=== PATIENT | female | born 1955 | race Caucasian/White ===

== ENCOUNTER → 2016-10-26 | Outpatient (CLI) | payer OTHER ==
--- NOTE | 2016-10-26 13:36 | XR ---
EXAMINATION TYPE: XR chest 2V DATE OF EXAM: 10/26/2016 COMPARISON: NONE HISTORY: Preoperative clearance. TECHNIQUE: Frontal and lateral views of the chest are obtained. FINDINGS: There is no pleural effusion, or pneumothorax seen. Subsegmental right middle lobe atelec tasis is seen. The cardiac silhouette size is within normal limits. The osseous structures are inta ct. Mild degenerative changes of the thoracic spine are noted. IMPRESSION: Subsegmental right middle lobe atelectasis.
[2016-10-26 13:54] LABS: EKG EKG PERFORMED
[2016-10-26 14:28] LABS: Basophils % (A) 1 %; CH 29.3; CHCM 31.5; Eosinophils # (A) 0.1 k/uL (0-0.7); Eosinophils % (A) 2 %; HCT 39.9 % (34.0-46.0); HDW 2.68; HGB 12.9 gm/dL (11.4-16.0); Hypochromasia Slight; Luc # (Auto) 0.17; Luc % (Auto) 3; Lymphocytes # (A) 1.4 k/uL (1.0-4.8); Lymphocytes % (A) 29 %; MCH 30.4 pg (25.0-35.0); MCHC 32.4 g/dL (31.0-37.0); MCV 93.8 fL (80.0-100.0); Mean Platelet Volume 7.1; Monocytes # (A) 0.2 k/uL (0-1.0); Monocytes % (A) 4 %; Neutrophils % (A) 61 %; RBC 4.25 m/uL (3.80-5.40); RDW 13.8 % (11.5-15.5); WBC 4.9 k/uL (3.8-10.6); WBC (Perox) 4.82
[2016-10-26 14:31] LABS: Anion Gap 12 mmol/L; Blood Urea Nitrogen 24 mg/dL (7-17); Calcium 9.4 mg/dL (8.4-10.2); Carbon Dioxide 23 mmol/L (22-30); Chloride 106 mmol/L (98-107); Glucose 125 mg/dL (74-99); Non-African American GFR(MDRD) >60 (>60 ml/min/1.73 sqM); Potassium 4.2 mmol/L (3.5-5.1); Sodium 141 mmol/L (137-145)
[2016-10-26 14:36] LABS: Partial Thromboplastin Time 24.5 sec (22.0-30.0); Prothrombin Time 10.3 sec (9.0-12.0)
[2016-10-26 14:43] LABS: Appearance,Urine Cloudy (Clear); Bacteria,Urine Moderate /hpf; Bilirubin,Urine Negative (Negative); Glucose,Urine (UA) Negative (Negative); Ketones,Urine Negative (Negative); Leukocyte Esterase,Urine Moderate (Negative); Mucus,Urine Occasional /hpf; Nitrite,Urine Positive (Negative); PH, Urine 5.5 (5.0-8.0); Particle Count 40281; Protein,Urine Trace (Negative); RBC,Urine 6 /hpf (0-5); Specific Gravity,Urine 1.021 (1.001-1.035); Squamous Epithelial Cell,Urine 2 /hpf (0-4); UA Billing (MACRO vs. MICRO) MICRO; Urobilinogen,Urine <2.0 mg/dL (<2.0); WBC,Urine 24 /hpf (0-5)
== END | disposition home or self-care (01) ==
LOC: RADXRMAIN 13:01
PROVIDERS: ATTEND Orthopaedic Surgery Orthopaedic Surgery of the Spine
DX: Z01.818 Encounter for other preprocedural examination (principal); Z01.810 Encounter for preprocedural cardiovascular examination; M51.26 Other intervertebral disc displacement, lumbar region; J98.11 Atelectasis
CPT/HCPCS: 71020; 80048; 81001; 85025; 85610; 85730; 93005

== ENCOUNTER 2016-11-02 11:38 | Day surgery (SDC) | payer OTHER ==
[2016-10-27 16:45] VITALS: BMI 34.9
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
[~2016-11-02 11:38] MED LIST: BACITRACIN 50,000 UNIT, POLYMYXIN B 500,000 UNIT in SODIUM CHLORIDE 0.9% IRRIGATIO 1,00... IRRIGATION ONE; HYDROmorphone 1 MG/ML 1 ML SYRINGE IVP PRN; LACTATED RINGERS 1,000 ML IV SCH; LIDOCAINE 1% 20 ML VIAL (10MG/ML) FOR IV START INTRADERMA PRN; ONDANSETRON 4 MG/2 ML VIAL IVP ONE; SCOPOLAMINE 1.5MG/72HR PATCH TRANSDERM ONE; ceFAZolin 2 GM in SODIUM CHLORIDE 0.9% 100 ML IVPB ONE
[2016-11-02] MEDS ORDERED: SCOPOLAMINE 1.5MG/72HR PATCH TRANSDERM ONE (12:34)
[2016-11-02] MEDS ORDERED: ePHEDrine SULFATE/0.9% NACL/PF 50 MG/5 ML SYRINGE IV ONE (12:41)
[2016-11-02] MEDS ORDERED: SUCCINYLCHOLINE CHLORIDE 100 MG/5 ML SYR IV ONE (12:41)
[2016-11-02] MEDS ORDERED: ROCURONIUM BROMIDE 10 MG/ML 10 ML VIAL IV ONE (12:41)
[2016-11-02] MEDS ORDERED: MIDAZOLAM 2 MG/2 ML VIAL ONE (12:41)
[2016-11-02] MEDS ORDERED: GLYCOPYRROLATE 0.2 MG/ML 2 ML VIAL ONE (12:41)
[2016-11-02] MEDS ORDERED: fentaNYL (PF) 50 MCG/ML 2 ML AMP ONE (12:41)
[2016-11-02] MEDS ORDERED: LIDOCAINE 1% INJ 10MG/ML (20 ML MDV) ONE (12:41)
[2016-11-02] MEDS ORDERED: DEXAMETHASONE SOD PHOS (MDV) 100 MG/10 ML VIAL ONE (12:41)
[2016-11-02] MEDS ORDERED: NEOSTIGMINE 1 MG/ML 10 ML VIAL ONE (12:41)
[2016-11-02] MEDS ORDERED: PROPOFOL 10 MG/ML 20 ML VIAL IV ONE (12:41)
[2016-11-02] MEDS ORDERED: BUPIVACAIN-EPI 0.5%-1:200,000 30 ML VIAL SQ ONE ×2 (13:03)
[2016-11-02] MEDS ORDERED: THROMBIN (BOVINE) 5,000 UNIT VIAL TOPICAL ONE (13:04)
[2016-11-02] MEDS ORDERED: methylPREDNISolone ACETATE 40 MG/ML 1 ML VIAL INJ ONE (13:13)
--- NOTE | 2016-11-02 13:32 | XR ---
Fluoroscopy INDICATION: Pain FINDINGS: Fluoroscopy time: 5 seconds. Images obtained: 1. IMPRESSIONS: 1. Documentation of fluoroscopy.
[2016-11-02] MEDS ORDERED: BENZOCAINE/MENTHOL LOZENG 1 EACH LOZENGE MUCOUS MEM PRN (14:09)
[2016-11-02] MEDS ORDERED: MAGNESIUM HYDROXIDE 2,400 MG/10 ML CUP PO PRN (14:09)
[2016-11-02] MEDS ORDERED: DIAZEPAM 5 MG TAB PO PRN ×2 (14:09→14:12)
[2016-11-02] MEDS ORDERED: HYDROmorphone 1 MG/ML 1 ML SYRINGE IVP PRN ×2 (14:09)
[2016-11-02] MEDS ORDERED: HYDROcodone/APAP 5-325MG 1 EACH TAB PO PRN ×3 (14:10→14:12)
[2016-11-02] MEDS ORDERED: IBUPROFEN 600 MG TAB PO PRN (14:10)
[2016-11-02] MEDS ORDERED: ONDANSETRON 4 MG/2 ML VIAL IVP PRN (14:10)
[2016-11-02] MEDS ORDERED: ACETAMINOPHEN TAB 500 MG TAB PO PRN (14:12)
[2016-11-02] MEDS ORDERED: IBUPROFEN 400 MG PO PRN (14:12)
--- NOTE | 2016-11-02 14:16 | P.OP ---
Date of Procedure: 11/02/16 Preoperative Diagnosis: Herniated nucleus pulposis L4 5, degenerative disc disease L4 5, lower extremity radiculopathy Postoperative Diagnosis: Same Procedure(s) Performed: Implants: Anesthesia: GETA Pathology: none sent Condition: stable Disposition: PACU Indications for Procedure: Operative Findings: Description of Procedure: BRIEF OPERATIVE NOTE Preoperative Diagnosis: Herniated nucleus pulposis L4 5, degenerative disc disease L4 5, lower extremity radiculopathy Postoperative Diagnosis: Same Procedure: Laminectomy and decompression L4 5 Discectomy for decompression L4 5 Surgeon: Dr. Espinoza Facilities Custodian: Roderick Tello is present throughout the entire the case persistence during positioning, dissection, exposure, visualization, and all crucial elements of the case as well as closure. Anesthesia: General anesthesia Estimated blood loss: Approximately 100 mL Complications: None apparent Components implanted: None Disposition: To recovery room in good stable condition. OPERATIVE INDICATIONS The patient has been having issues in their lower back and lower extremities. She has been having these symptoms over the past 8 months or so. She's been treated conservatively with aggressive conservative treatment and interventional pain management without any prolonged benefit. She is found have a significant disc herniation L4 5 causing significant compression at the traversing nerve root which correlated well with her back and lower extremity symptoms. The patient has been through conservative treatment. We discussed various treatment options including surgery, and the patient wishes to proceed with surgery We discussed the risk, patient's alternatives and benefits of surgery including but not limited to, risk of bleeding risk of infection, risk of need for further surgery, risk of decreased, loss of motion, loss of function , nerve damage, paralysis, heart attack, blindness and . OPERATIVE SUMMARY After discussing all the risks, patient alternatives and benefits at length, the patient elected to proceed with surgical intervention, signed informed consent, and presented for their procedure. The patient was seen and examined in the preoperative holding area and the surgical site was marked. The patient was given antibiotics and brought to the operating room. The patient was sedated and intubated by anesthesia in standard fashion. The patient was positioned on to the operating room table in a prone position on the appropriate frame which was well-padded and well molded. We were careful to pad any bony prominences and pressure points. We were careful to maintain the patient's cervical spine and good neutral alignment and position throughout. The patient was prepped and draped in a normal standard fashion. An appropriate timeout and keystone protocol performed. We were able to proceed with the surgery. Fluoroscopy was utilized to establish the appropriate level at L4 5. The local wound area was infiltrated with local anesthetic. An incision was made at the midline longitudinally over the appropriate levels at L4 5. Dissection was taken down subcutaneously to the level of the fascia which was split midline. Dissection was taken over the lamina. Intraoperative fluoroscopy was taken which showed a marker at the appropriate level at L4 5. With the appropriate level positively confirmed, we were able to proceed with laminectomy. The wound was copiously irrigated and suctioned dry as had been done periodically throughout the case. I performed a laminectomy with a combination of curettes and a high-speed bur and Kerrison rongeurs. A small medial facetectomy was performed again further access. A partial foraminotomy was also performed. Portions of the ligamentum flavum were taken down to expose the dura and traversing nerve root. I was able to mobilize the traversing nerve root and gain access to the disc space. Note was made of obvious compression from the disc. Protecting the soft tissue structures, a small annulotomy was established. I was able to perform discectomy and remove any extruded disc fragments and any loose fragments from within the disc itself. The disc was somewhat scarred in and there are some hard disc which was removed. There is some disc significant desiccation noted. I tried to preserve the disc annulus that appeared stable. There were no further extruded fragments noted. There is no evidence of dural tear or leak. Good hemostasis maintained. The wound was copiously irrigated and suctioned dry. Good decompression and discectomy was noted. We were able to proceed with closure. The fascia was closed for a watertight closure. The subcuticular tissue was closed with absorbable suture. The wound was cleaned and dried and dressed with the appropriate dressing. The drapes were broken down. The patient was gently rolled back onto their hospital bed being careful to maintain their cervical spine and good neutral alignment and position. They were woken up by anesthesia, extubated, and brought to the recovery room in good stable condition. The patient will be admitted to the hospital for observation and for appropriate postoperative care, medical management and monitoring. We will continue to follow them closely about the postoperative course.
[2016-11-02] MEDS ORDERED: LACTATED RINGERS 1,000 ML IV ONE (14:53)
[2016-11-02] MEDS: SODIUM CHLORIDE 0.9% 1,000 ML IV SCH (15:47)
[2016-11-02] MEDS: BACLOFEN 10 MG TAB PO SCH ×2 (15:50→22:06)
[2016-11-02] MEDS: buPROPion 75 MG TAB PO SCH (20:38)
[2016-11-02] MEDS: NITROFURANTOIN MONOHYD/M-CRYST 100 MG CAP PO SCH (20:38)
[2016-11-02] MEDS: CIPROFLOXACIN HCL 500 MG TAB PO SCH (20:38)
[2016-11-02] MEDS: ceFAZolin 2 GM in SODIUM CHLORIDE 0.9% 100 ML IVPB SCH (23:15)
[2016-11-03] MEDS: SODIUM CHLORIDE 0.9% 1,000 ML IV SCH (07:25)
[2016-11-03 07:52] VITALS: BP 112/56; PULSE 70; RESP 16; TEMP 98.1
[2016-11-03] MEDS: ceFAZolin 2 GM in SODIUM CHLORIDE 0.9% 100 ML IVPB SCH (08:25)
[2016-11-03] MEDS: BACLOFEN 10 MG TAB PO SCH (08:26)
[2016-11-03] MEDS: CIPROFLOXACIN HCL 500 MG TAB PO SCH (08:27)
[2016-11-03] MEDS: NITROFURANTOIN MONOHYD/M-CRYST 100 MG CAP PO SCH (08:27)
[2016-11-03] MEDS: buPROPion 75 MG TAB PO SCH (08:28)
[2016-11-03] MEDS ORDERED: DOCUSATE 100 MG CAP PO SCH (09:00)
[2016-11-03] MEDS ORDERED: CHOLECALCIFEROL 1,000 UNIT TAB PO SCH (09:00)
[2016-11-03] MEDS ORDERED: OXYBUTYNIN CHLORIDE 5 MG TAB PO SCH (09:00)
[2016-11-03] MEDS ORDERED: LACTOBACILLUS ACIDOPH & BULGAR 1 EACH PACKET PO SCH (09:00)
[2016-11-03] MEDS ORDERED: CYANOCOBALAMIN 500 MCG TAB PO SCH (09:00)
[2016-11-03] MEDS ORDERED: ASCORBIC ACID 500 MG TAB PO SCH (09:00)
[2016-11-03] MEDS ORDERED: GABAPENTIN 300 MG CAP PO SCH (09:00)
[2016-11-03] MEDS ORDERED: FLUoxetine HCL 20 MG CAP PO SCH (09:00)
[2016-11-03] MEDS ORDERED: SENNOSIDES-DOCUSATE SODIUM 1 EACH TAB PO SCH (09:00)
[2016-11-03] MEDS ORDERED: FAMOTIDINE 20 MG TAB PO SCH (09:00)
--- NOTE | 2016-11-03 11:58 | P.DS ---
Providers Expected date of discharge: 11/03/16 Attending physician: Major Espinoza Primary care physician: Balaji Lopez - Discharge Diagnosis(es) (1) Herniated nucleus pulposus Current Visit: Yes Status: Acute (2) S/P laminectomy Current Visit: Yes Status: Acute Hospital Course: This is a 61-year-old female with a known history of disc herniation at L4/5 causing chronic issues with her lower back and bilateral lower extremities.. The patient presents for evaluation. After discussion and consideration patient elects to proceed with laminectomy and decompression L4/5. The patient is seen preoperatively by Dr. Espinoza and cleared for surgery. Patient is admitted to [facility] on 11/02/2016 for laminectomy and decompression L4/5. The procedures performed without complication or sequelae. The patient is doing well postoperatively. Labs and vital signs are stable on day of discharge. On day of discharge patient's back incision is healing well. There is minimal erythema. There is mild drainage noted at this time. Patient has full range of motion of bilateral lower extremities. Strength 5/5. Sensation intact. Patient has been up and walking with her walker without difficulty. Neurovascular status to bilateral lower extremities is intact. Patient is discharged home in good condition. Please see med rec for accurate list of home medications. Plan - Discharge Summary New Discharge Prescriptions: New HYDROcodone/APAP 5-325MG [[place] 5-325] 1 - 2 tab PO Q4-6H PRN #90 tab PRN Reason: Pain Sennosides-Docusate Sodium [Senokot-S] 1 tab PO BID #60 tablet No Action Ranitidine HCl [Zantac] 150 mg PO DAILY Acetaminophen Tab [Tylenol Tab] 1,000 mg PO Q6HR PRN PRN Reason: Pain Docusate [Colace] 100 mg PO DAILY HYDROcodone/APAP 5-325MG [[place] 5-325] 1 tab PO Q12HR PRN PRN Reason: Pain buPROPion [Wellbutrin] 75 mg PO BID Gabapentin [Neurontin] 300 mg PO DAILY Tolterodine [Detrol] 2 mg PO DAILY FLUoxetine HCL [PROzac] 40 mg PO DAILY Diazepam [Valium] 5 mg PO TID PRN PRN Reason: Muscle Spasm Baclofen [Lioresal] 5 mg PO TID L.acidoph,Paracasei, B.lactis [Probiotic] 1 each PO DAILY Ibuprofen 400 mg PO DAILY PRN PRN Reason: Pain Glucosam/Mor-Msm1/C/Raymon/Bosw [Glucosamine-Chondroitin Tablet] 1 each PO DAILY Cyanocobalamin (Vitamin B-12) [Vitamin B-12] 1,000 mcg PO DAILY Coconut Oil 1 tab PO DAILY Cholecalciferol (Vitamin D3) [Vitamin D3] 2,000 unit PO DAILY Ascorbic Acid [Vitamin C] 1,000 mg PO DAILY Nitrofurantoin Monohyd/M-Cryst [Macrobid] 100 mg PO Q12HR Ciprofloxacin HCl [Cipro] 500 mg PO Q12HR Discharge Medication List Acetaminophen Tab [Tylenol Tab] 1,000 mg PO Q6HR PRN 10/27/16 [History] Ascorbic Acid [Vitamin C] 1,000 mg PO DAILY 10/27/16 [History] Baclofen [Lioresal] 5 mg PO TID 10/27/16 [History] Cholecalciferol (Vitamin D3) [Vitamin D3] 2,000 unit PO DAILY 10/27/16 [History] Coconut Oil 1 tab PO DAILY 10/27/16 [History] Cyanocobalamin (Vitamin B-12) [Vitamin B-12] 1,000 mcg PO DAILY 10/27/16 [ History] Diazepam [Valium] 5 mg PO TID PRN 10/27/16 [History] Docusate [Colace] 100 mg PO DAILY 10/27/16 [History] FLUoxetine HCL [PROzac] 40 mg PO DAILY 10/27/16 [History] Gabapentin [Neurontin] 300 mg PO DAILY 10/27/16 [History] Glucosam/Mor-Msm1/C/Raymon/Bosw [Glucosamine-Chondroitin Tablet] 1 each PO DAILY 10/27/16 [History] HYDROcodone/APAP 5-325MG [[place] 5-325] 1 tab PO Q12HR PRN 10/27/16 [History] Ibuprofen 400 mg PO DAILY PRN 10/27/16 [History] L.acidoph,Paracasei, B.lactis [Probiotic] 1 each PO DAILY 10/27/16 [History] Nitrofurantoin Monohyd/M-Cryst [Macrobid] 100 mg PO Q12HR 10/27/16 [History] Ranitidine HCl [Zantac] 150 mg PO DAILY 10/27/16 [History] Tolterodine [Detrol] 2 mg PO DAILY 10/27/16 [History] buPROPion [Wellbutrin] 75 mg PO BID 10/27/16 [History] Ciprofloxacin HCl [Cipro] 500 mg PO Q12HR 10/29/16 [History] HYDROcodone/APAP 5-325MG [[place] 5-325] 1 - 2 tab PO Q4-6H PRN #90 tab 11/03/16 [ Rx] Sennosides-Docusate Sodium [Senokot-S] 1 tab PO BID #60 tablet 11/03/16 [Rx] Follow up Appointment(s)/Referral(s): Major Espinoza DO [Doctor of Osteopathic Medicine] - 2 Weeks Activity/Diet/Wound Care/Special Instructions: May shower with Tegaderm dressing intact. Please take medications as prescribed. Follow-up with Dr. Espinoza in 2 weeks. Call [facility] with any questions or concerns. [phone] Discharge Disposition: HOME SELF-CARE
== END 2016-11-03 14:20 | disposition home or self-care (01) ==
LOC: OR 11:38 → EDSTATUS 13:00 → 5MS5E 14:00 → OR 11-03 14:20
PROVIDERS: ATTEND Orthopaedic Surgery Orthopaedic Surgery of the Spine
DX: M51.16 Intervertebral disc disorders with radiculopathy, lumbar region (principal); M51.17 Intervertebral disc disorders with radiculopathy, lumbosacral region; M47.26 Other spondylosis with radiculopathy, lumbar region; M47.817 Spondylosis without myelopathy or radiculopathy, lumbosacral region; F32.9 Major depressive disorder, single episode, unspecified; H91.90 Unspecified hearing loss, unspecified ear; F41.9 Anxiety disorder, unspecified; I10 Essential (primary) hypertension; N31.2 Flaccid neuropathic bladder, not elsewhere classified; N39.498 Other specified urinary incontinence; G82.50 Quadriplegia, unspecified; Z99.3 Dependence on wheelchair; K21.9 Gastro-esophageal reflux disease without esophagitis; Z79.1 Long term (current) use of non-steroidal anti-inflammatories (NSAID); Z79.891 Long term (current) use of opiate analgesic; Z79.899 Other long term (current) drug therapy; Z79.2 Long term (current) use of antibiotics; Z87.891 Personal history of nicotine dependence
CPT/HCPCS: 63030; 97161; 86900; 86901; 86850; 72020; J2250; J1030; J2710; J0690 ×2; J2405; J2001; J3010; J1100; J0330; J2704

== ENCOUNTER → 2016-12-16 | Outpatient (CLI) | payer OTHER ==
--- NOTE | 2016-12-17 09:15 | MM ---
Reason for exam: screening (asymptomatic). Last mammogram was performed 2 years and 11 months ago. History: Patient is postmenopausal. Family history of breast cancer in grandmother at age 70. Benign US biopsy breast VAD RT of the right breast, January 31, 2014. Benign stereotactic core biopsy of the right breast, 2008. Reductions of both breasts, 2000. Physical Findings: A clinical breast exam by your physician is recommended on an annual basis and results should be correlated with mammographic findings. MG 3D Screening Mammo W/Cad Bilateral CC and MLO view(s) were taken. Prior study comparison: January 25, 2014, right breast MG work up mamm w CAD RT. January 18, 2014, bilateral MG screening mammo w CAD. January 03, 2013, bilateral digital screening mammo w/CAD. September 22, 2010, bilateral digital screening mammo w/CAD. There are scattered fibroglandular densities. Previous mammotome biopsy in the right breast. Bilateral mammoplasty changes. Nodularity in the 9-10 o'clock right breast appears new. Benign fat necrosis calcifications redemonstrated bilaterally. ASSESSMENT: Incomplete: need additional imaging evaluation, BI-RAD 0 RECOMMENDATION: Special view mammogram and ultrasound of the right breast. (upper outer quadrant) [facility] will attempt to contact patient to return for supplemental views and ultrasound.
== END | disposition home or self-care (01) ==
LOC: RADMAMWWP 11:29
PROVIDERS: ATTEND Internal Medicine
DX: Z12.31 Encounter for screening mammogram for malignant neoplasm of breast (principal)
CPT/HCPCS: 77063; G0202

== ENCOUNTER → 2016-12-25 | Outpatient (CLI) | payer OTHER ==
--- NOTE | 2016-12-25 09:14 | MM ---
Reason for exam: additional evaluation requested from abnormal screening. Last mammogram was performed less than 1 month ago. History: Patient is postmenopausal. Family history of breast cancer in grandmother at age 70. Benign US biopsy breast VAD RT of the right breast, January 31, 2014. Benign stereotactic core biopsy of the right breast, 2008. Reductions of both breasts, 2000. Physical Findings: Nurse did not find any significant physical abnormalities on exam. MG 3D Work Up W/Cad RT CC and MLO view(s) were taken of the right breast. Prior study comparison: December 16, 2016, bilateral MG 3d screening mammo w/cad. January 25, 2014, right breast MG work up mamm w CAD RT. The breast tissue is heterogeneously dense. This may lower the sensitivity of mammography. The mass persist on additional views and morphologically correlated with the sonographic mass. This likely correlated with the sonographic cyst after placement of a BB marker and is probably benign. These results were verbally communicated with the patient and result sheet given to the patient on 12/25/16. ASSESSMENT: Probably benign, BI-RAD 3 RECOMMENDATION: Follow-up diagnostic mammogram of the right breast in 6 months. (with ultrasound is change in size/morphology)
--- NOTE | 2016-12-25 09:16 | USB ---
Reason for exam: additional evaluation requested from abnormal screening. History: Patient is postmenopausal. Family history of breast cancer in grandmother at age 70. Benign US biopsy breast VAD RT of the right breast, January 31, 2014. Benign stereotactic core biopsy of the right breast, 2008. Reductions of both breasts, 2000. US Breast Workup Limited RT Right breast ultrasound demonstrates a 0.6 x 0.3 x 0.3cm cystic lesion at 9 o'clock likely corresponds to mammographic finding after BB placement, a 0.6cm calcification at 11 o'clock and a 0.6cm calcification at 11 o'clock. These results were verbally communicated with the patient and result sheet given to the patient on 12/25/16. ASSESSMENT: Probably benign, BI-RAD 3 RECOMMENDATION: Follow-up diagnostic mammogram of the right breast in 6 months.
== END ==
LOC: RADMAMWWP 07:00
PROVIDERS: ATTEND Internal Medicine
DX: R92.8 Other abnormal and inconclusive findings on diagnostic imaging of breast (principal)
CPT/HCPCS: 76642; G0206; G0279

== ENCOUNTER 2020-05-17 22:49 | Emergency (ER) | payer OTHER ==
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
--- NOTE | 2020-05-17 23:41 | XR ---
EXAMINATION TYPE: XR ankle complete RT DATE OF EXAM: 05/17/2020 COMPARISON: NONE HISTORY: Injury and pain TECHNIQUE: 3 views FINDINGS: There is nondisplaced oblique fracture distal fibula. There is transverse fracture of the m edial malleolus. There is no significant displacement. There is soft tissue swelling around the ankle . There is plantar and Achilles calcaneal spurring. IMPRESSION: Acute bimalleolar fracture of the ankle with soft tissue swelling.
[2020-05-17] MEDS ORDERED: HYDROcodone/APAP 5-325MG 1 EACH TAB PO STA (23:57)
[2020-05-18 00:37] VITALS: BP 137/80; PULSE 80; RESP 16; TEMP 99
== END 2020-05-18 00:15 | disposition home or self-care (01) ==
LOC: EC 22:49
DX: S82.844A Nondisplaced bimalleolar fracture of right lower leg, initial encounter for closed fracture (principal); F41.9 Anxiety disorder, unspecified; F32.9 Major depressive disorder, single episode, unspecified; I10 Essential (primary) hypertension; Z79.899 Other long term (current) drug therapy; Z87.891 Personal history of nicotine dependence; X50.1XXA Overexertion from prolonged static or awkward postures, initial encounter
CPT/HCPCS: 29515; 99284

== ENCOUNTER → 2020-08-22 | Outpatient (CLI) | payer OTHER ==
--- NOTE | 2020-08-28 10:47 | MM ---
Reason for exam: screening (asymptomatic). Last mammogram was performed 3 years and 8 months ago. History: Patient is postmenopausal. Family history of breast cancer in grandmother at age 70. Benign US biopsy breast VAD RT of the right breast, January 31, 2014. Benign stereotactic core biopsy of the right breast, 2008. Reductions of both breasts, 2000. Physical Findings: A clinical breast exam by your physician is recommended on an annual basis and results should be correlated with mammographic findings. MG Screening Mammo w CAD Bilateral CC and MLO view(s) were taken. Prior study comparison: December 25, 2016, right breast MG 3d work up w/cad RT. December 16, 2016, bilateral MG 3d screening mammo w/cad. There are scattered fibroglandular densities. Finding: There are typically benign round, diffuse/scattered calcifications in both breasts. No significant changes in finding since December 25, 2016 and December 16, 2016. ASSESSMENT: Benign, BI-RAD 2 RECOMMENDATION: Routine screening mammogram of both breasts in 1 year.
== END | disposition home or self-care (01) ==
LOC: RADMAMWWP 13:15
PROVIDERS: ATTEND Internal Medicine
DX: Z12.31 Encounter for screening mammogram for malignant neoplasm of breast (principal); Z78.0 Asymptomatic menopausal state; Z80.3 Family history of malignant neoplasm of breast
CPT/HCPCS: 77067

== ENCOUNTER 2020-10-31 23:42 | Emergency (ER) | payer OTHER ==
--- NOTE | 2020-11-01 01:31 | XR ---
EXAMINATION TYPE: XR toes LT DATE OF EXAM: 11/01/2020 COMPARISON: NONE HISTORY: Fall. Pain. TECHNIQUE: 3 views FINDINGS: 3 views of the toes were obtained. There is some thickening of the proximal phalanx of the little toe left foot consistent with an old healed fracture. I see no acute fracture nor dislocation. Third toe appears intact. IMPRESSION: No acute abnormality of the left toes.
[2020-11-01] MEDS ORDERED: TOPICAL SKIN ADHESIVE 1 EACH AMP TOPICAL ONE ×3 (01:33→02:22)
[2020-11-01] MEDS ORDERED: BACITRACIN OINT 1 EACH PACKET TOPICAL ONE (01:39)
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
--- NOTE | 2020-11-01 01:48 | CT ---
EXAMINATION TYPE: CT brain vera gillis con DATE OF EXAM: 11/01/2020 COMPARISON: None HISTORY: fall CT DLP: 1143.4 mGycm Automated exposure control for dose reduction was used. Ventricles and sulci appear normal. There is no mass effect nor midline shift. There is no sign of in tracranial hemorrhage. The calvarium is intact. Skull base is intact. There is normal aeration of the mastoid sinuses. There is some straightening of the cervical spine. There is anterior old fusion surgery at C4-5 and C 5-6. Posterior elements are intact. There is multilevel cervical hypertrophic facet arthropathy. Ther e is no evidence of cervical spine fracture. There is evidence for multilevel cervical bony spinal st enosis. IMPRESSION: Cervical multilevel mild spinal stenosis. Previous surgery. No fracture seen. No acute abnormality of the brain.
--- NOTE | 2020-11-01 01:50 | CT ---
EXAMINATION TYPE: CT facial bones wo con DATE OF EXAM: 11/01/2020 COMPARISON: None HISTORY: fall CT DLP: 1143.4 mGycm Automated exposure control for dose reduction was used. Images obtained from the bottom of the mandible to the top of the frontal sinuses without contrast. Mandibular ring appears intact. Mandibular joints are intact and zygomatic arches appear normal. Orbi leyla margins are intact. There is no evidence of an orbital blowout fracture. There is fairly normal a eration of the paranasal sinuses. There is no evidence of retro-orbital mass. The globes are symmetri c. Nasal bone appears intact. Maxilla is intact. I see no focal bone destruction. Parotid glands are symmetric. There is normal aeration of the mastoid sinuses. External auditory canals appear normal. IMPRESSION: Negative CT scan of the facial bones. No fracture.
[2020-11-01] MEDS ORDERED: CEPHALEXIN 500MG STARTER PACK 4 CAP BTL PO STA (02:22)
[2020-11-01] MEDS ORDERED: IBUPROFEN 600 MG STARTER PACK 4 TAB BTL PO STA (02:22)
[2020-11-01 04:03] VITALS: BP 150/78; PULSE 85; RESP 15; TEMP 97.8
== END 2020-11-01 03:58 | disposition home or self-care (01) ==
LOC: EC 23:42
DX: S01.81XA Laceration without foreign body of other part of head, initial encounter (principal); S91.115A Laceration without foreign body of left lesser toe(s) without damage to nail, initial encounter; S01.21XA Laceration without foreign body of nose, initial encounter; I10 Essential (primary) hypertension; Z87.891 Personal history of nicotine dependence; W05.0XXA Fall from non-moving wheelchair, initial encounter; Y92.009 Unspecified place in unspecified non-institutional (private) residence as the place of occurrence of the external cause
CPT/HCPCS: 12001; 12013; 70450; 70486; 72125; 99284

== ENCOUNTER → 2020-11-29 | Outpatient (CLI) | payer OTHER ==
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
== END | disposition home or self-care (01) ==
LOC: RADBDWWP 14:20
PROVIDERS: ATTEND Internal Medicine
DX: M85.88 Other specified disorders of bone density and structure, other site (principal)
CPT/HCPCS: 77080

== ENCOUNTER 2021-01-29 09:05 | Day surgery (SDC) | payer OTHER ==
[2021-01-27 13:57] VITALS: BMI 33.4
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
[~2021-01-29 09:05] MED LIST changes: -BACITRACIN 50,000 UNIT, POLYMYXIN B 500,000 UNIT in SODIUM CHLORIDE 0.9% IRRIGATIO 1,00... IRRIGATION ONE; -HYDROmorphone 1 MG/ML 1 ML SYRINGE IVP PRN; +LIDOCAINE 1% (10MG/ML) FOR IV START INTRADERMA PRN; -LIDOCAINE 1% 20 ML VIAL (10MG/ML) FOR IV START INTRADERMA PRN; -ONDANSETRON 4 MG/2 ML VIAL IVP ONE; -SCOPOLAMINE 1.5MG/72HR PATCH TRANSDERM ONE; -ceFAZolin 2 GM in SODIUM CHLORIDE 0.9% 100 ML IVPB ONE
[2021-01-29] MEDS ORDERED: ONDANSETRON 4 MG/2 ML VIAL ONE (09:31)
[2021-01-29 09:33] VITALS: RESP 16; TEMP 97.4
[2021-01-29] MEDS ORDERED: PROPOFOL 10 MG/ML 20 ML VIAL IV ONE (09:37)
--- NOTE | 2021-01-29 09:59 | P.PCN ---
Date of Procedure: 01/29/21 Description of Procedure: PREOPERATIVE DIAGNOSIS: Family history colon cancer Colonoscopy screening. POSTOPERATIVE DIAGNOSIS: Family history colon cancer Colonoscopy screening. OPERATION: Colonoscopy to the cecum, ileocecal valve and appendiceal orifice. SURGEON: Alina Delgadillo MD. ANESTHESIA: MAC. INDICATIONS: The patient is a 65-year-old female who presents for colonoscopy screening. Last colonoscopy over 10 years ago. Benefits and risks were described and informed consent was obtained. DESCRIPTION OF PROCEDURE: The patient had undergone Sutab prep. The patient had been brought into the operating room and laid in the left lateral decubitus position. After adequate intravenous sedation, the rectum was examined with 2% lidocaine jelly. External hemorrhoids were encountered. The rectal tone was within normal limits. No lesions were palpated in the rectal vault. An Olympus colonoscope was advanced until the cecum, ileocecal valve and appendiceal orifice were clearly viewed. The prep was excellent. No scattered diverticulosis was encountered. No colonic polyps were found. No evidence of focal colitis was found. Retroflexion of the scope demonstrated grade 2 internal hemorrhoids without active bleeding or inflammation. The colon was desufflated. The patient had tolerated the procedure well. Withdrawal time was over 6 minutes. FINDINGS: Aronchick preparation quality scale 1 (1-5) Internal hemorrhoids, grade 2 External prolapsed hemorrhoids, grade 2 No arteriovenous malformations. No adenomatous polyps. No focal colitis. RECOMMENDATIONS: Lower endoscopy in 5 years, 2025 due to high risk history Plan - Discharge Summary Discharge Rx Participant: No New Discharge Prescriptions: Continue buPROPion [Wellbutrin] 75 mg PO BID FLUoxetine HCL [PROzac] 40 mg PO DAILY Baclofen [Lioresal] 10 mg PO DAILY L.acidoph,Paracasei, B.lactis [Probiotic] 1 cap PO AC-LUNCH Ibuprofen 400 mg PO Q6H PRN PRN Reason: Pain Cyanocobalamin (Vitamin B-12) [Vitamin B-12] 1,000 mcg PO AC-LUNCH Ascorbic Acid [Vitamin C] 1,000 mg PO AC-LUNCH Cranberry 8400mg 8,400 mg PO AC-LUNCH Multivitamins, Thera [Multivitamin (formulary)] 1 tab PO AC-LUNCH Cholecalciferol [Vitamin D3 (25 Mcg = 1000 Iu)] 5,000 unit PO AC-LUNCH Cider Vinegar [Apple Cider Vinegar] 300 mg PO AC-LUNCH Oxybutynin Chloride [Ditropan XL] 10 mg PO DAILY Thyroid,Pork [Composition Professor Thyroid] 30 mg PO DAILY Discharge Medication List Ascorbic Acid [Vitamin C] 1,000 mg PO AC-LUNCH 10/27/16 [History] Baclofen [Lioresal] 10 mg PO DAILY 10/27/16 [History] Cyanocobalamin (Vitamin B-12) [Vitamin B-12] 1,000 mcg PO AC-LUNCH 10/27/16 [History] FLUoxetine HCL [PROzac] 40 mg PO DAILY 10/27/16 [History] Ibuprofen 400 mg PO Q6H PRN 10/27/16 [History] L.acidoph,Paracasei, B.lactis [Probiotic] 1 cap PO AC-LUNCH 10/27/16 [History] buPROPion [Wellbutrin] 75 mg PO BID 10/27/16 [History] Cholecalciferol [Vitamin D3 (25 Mcg = 1000 Iu)] 5,000 unit PO AC-LUNCH 01/07/17 [History] Cider Vinegar [Apple Cider Vinegar] 300 mg PO AC-LUNCH 01/07/17 [History] Cranberry 8400mg 8,400 mg PO AC-LUNCH 01/07/17 [History] Multivitamins, Thera [Multivitamin (formulary)] 1 tab PO AC-LUNCH 01/07/17 [History] Oxybutynin Chloride [Ditropan XL] 10 mg PO DAILY 01/27/21 [History] Thyroid,Pork [Composition Professor Thyroid] 30 mg PO DAILY 01/27/21 [History] Follow up Appointment(s)/Referral(s): Alina Delgadillo MD [STAFF PHYSICIAN] - As Needed Patient Instructions/Handouts: *Surgery [facility] - (Anesthesia) Endoscopy Discharge Instructions Activity/Diet/Wound Care/Special Instructions: Repeat colonoscopy in 5 years, 2025 Discharge Disposition: HOME SELF-CARE
[2021-01-29 10:20] VITALS: BP 100/66; PULSE 63
== END 2021-01-29 11:36 | disposition home or self-care (01) ==
LOC: ORWHC2ENDO 09:05
PROVIDERS: ATTEND Surgery Plastic and Reconstructive Surgery
DX: Z12.11 Encounter for screening for malignant neoplasm of colon (principal); Z80.0 Family history of malignant neoplasm of digestive organs; K64.1 Second degree hemorrhoids; I10 Essential (primary) hypertension; E07.9 Disorder of thyroid, unspecified; F32.A Depression, unspecified; Z74.09 Other reduced mobility; N39.41 Urge incontinence; Z86.010 Personal history of colon polyps; Z87.81 Personal history of (healed) traumatic fracture; Z87.891 Personal history of nicotine dependence; Z98.51 Tubal ligation status; Z98.890 Other specified postprocedural states; Z82.49 Family history of ischemic heart disease and other diseases of the circulatory system; Z79.899 Other long term (current) drug therapy
CPT/HCPCS: J2704; G0105

== ENCOUNTER → 2021-07-08 | Outpatient (CLI) | payer OTHER | END | disposition home or self-care (01) | LOC: RADUSWWP 13:40 | PROVIDERS: ATTEND Internal Medicine | DX: R22.40 Localized swelling, mass and lump, unspecified lower limb (principal) | CPT/HCPCS: 93922 ==

== ENCOUNTER → 2021-08-28 | Outpatient (CLI) | payer OTHER ==
--- NOTE | 2021-08-30 12:25 | MM ---
Reason for Exam: Screening (asymptomatic). Last screening mammogram was performed 12 month(s) ago. Patient History: Menarche at age 13. First Full-Term at age 25. Postmenopausal. 2008, Benign Stereotactic Core Biopsy on the right side. 2000, Bilateral Reduction. 01/31/2014, Benign Core Biopsy on the right side. Maternal grandmother had breast cancer, age 70. Risk Values: Fatoumata 5 year model risk: 2.3%. NCI Lifetime model risk: 9.7%. Prior Study Comparison: 12/16/2016 Bilateral Screening Mammogram, [facility]. 12/25/2016 Right Diagnostic Mammogram, [facility]. 08/22/2020 Bilateral Screening Mammogram, [facility]. Tissue Density: There are scattered fibroglandular densities. Findings: Analyzed By CAD. Scattered benign oil cyst, secretory, and round calcifications are demonstrated. Unchanged focal asymmetry posterior upper outer quadrant left breast. Microclip right breast from prior biopsy. No significant change from prior exams. Overall Assessment: Benign, BI-RAD 2 Management: Screening Mammogram of both breasts in 1 year. 1. Patient should continue monthly self breast exams. 2. A clinical breast exam by your physician is recommended on an annual basis and results should be correlated with mammographic findings. A negative mammogram should not preclude additional follow-up of suspicious palpable abnormalities. Electronically signed and approved by: Aleksander Garcia M.D. Radiologist
== END | disposition home or self-care (01) ==
LOC: RADMAMWWP 14:08
PROVIDERS: ATTEND Internal Medicine
DX: Z12.31 Encounter for screening mammogram for malignant neoplasm of breast (principal); Z78.0 Asymptomatic menopausal state; Z80.3 Family history of malignant neoplasm of breast
CPT/HCPCS: 77063; 77067

== ENCOUNTER → 2022-01-09 | Outpatient (CLI) | payer MEDICARE ==
--- NOTE | 2022-01-10 09:54 | CA ---
Transthoracic Echo Report Name: Taibtha Kolb Age: 66 Gender: F : 1955 Exam Date: 01/09/2022 14:26 Exam Location: [facility] Echo Ht (in): 68 Wt (lb): 220 Ordering Physician: Zechariah Easley MD Attending/Referring Phys: Lumber Planer Saida Ramos RDCS Procedure CPT: Indications: R60.0 LOCALIZED EDEMA Cardiac Hx: Technical Quality: Fair Contrast 1: Total Dose (mL): Contrast 2: Total Dose (mL): MEASUREMENTS (Male / Female) Normal Values 2D ECHO LV Diastolic Diameter PLAX 3.2 cm 4.2 - 5.9 / 3.9 - 5.3 cm LV Systolic Diameter PLAX 2.4 cm IVS Diastolic Thickness 1.7 cm 0.6 - 1.0 / 0.6 - 0.9 cm LVPW Diastolic Thickness 1.5 cm 0.6 - 1.0 / 0.6 - 0.9 cm LV Relative Wall Thickness 1.0 RV Internal Dim ED PLAX 3.1 cm LVOT Diameter 2.0 cm LA Volume 52.5 cm??? 18 - 58 / 22 - 52 cm??? M-MODE Aortic Root Diameter MM 3.3 cm LA Systolic Diameter MM 3.5 cm LA Ao Ratio MM 1.1 AV Cusp Separation MM 2.0 cm DOPPLER AV Peak Velocity 121.1 cm/s AV Peak Gradient 5.9 mmHg AV Mean Velocity 86.4 cm/s AV Mean Gradient 3.2 mmHg AV Velocity Time Integral 23.7 cm LVOT Peak Velocity 83.9 cm/s LVOT Peak Gradient 2.8 mmHg AV Area Cont Eq pk 2.2 cm??? MV Area PHT 4.1 cm??? Mitral E Point Velocity 65.4 cm/s Mitral A Point Velocity 81.1 cm/s Mitral E to A Ratio 0.8 MV Deceleration Time 182.9 ms MV E' Velocity 5.8 cm/s Mitral E to MV E' Ratio 11.2 TR Peak Velocity 216.7 cm/s TR Peak Gradient 18.8 mmHg Right Ventricular Systolic Press 23.7 mmHg FINDINGS Left Ventricle Moderately increased left ventricular wall thickness. Normal left ventricular wall motion. Left ventricular ejection fraction is estimated at 55-60 %. Right Ventricle Normal right ventricular size and function. Right ventricular systolic pressure within normal limits. Right Atrium Normal right atrial size. Left Atrium Normal left atrial size. Mitral Valve Structurally normal mitral valve. Mitral valve thickened. Mild mitral annular calcification. Mild mitral regurgitation. Aortic Valve Trileaflet aortic valve. No aortic stenosis. No aortic regurgitation. Aortic valve sclerosis. Tricuspid Valve Structurally normal tricuspid valve. Mild tricuspid regurgitation. Pulmonic Valve Structurally normal pulmonic valve. Trace pulmonic regurgitation. Pericardium No pericardial effusion. Aorta Normal size aortic root and proximal ascending aorta. CONCLUSIONS Extremely difficult study for interpretation Normal left ventricular dimension and systolic function Poorly visualized intracardiac valves Previewed by: Dr. Cl Olvera MD (Electronically Signed) Final Date: 10 January 2022 09:53
== END | disposition home or self-care (01) ==
LOC: RADECHMAIN 14:16
PROVIDERS: ATTEND Family Medicine
DX: R60.0 Localized edema (principal)
CPT/HCPCS: 93306

== ENCOUNTER → 2022-07-28 | Outpatient (CLI) | payer MEDICARE ==
--- NOTE | 2022-07-29 22:41 | US ---
EXAMINATION TYPE: US arterial LE multi level DATE OF EXAM: 07/28/2022 3:06 PM CLINICAL INDICATION: Female, 66 years old with history of I73.9 PERIPHERAL ARTERY DISEASE; Pain and e heidi bilateral legs for 1 year, worse on the left. Cold feet. Patient broke neck 8 years ago History of: Smoker: previous Hypertension: no Diabetic: no Hyperlipidemia: no TIA/CVA: no Previous Vascular Surgery: no CAD: OR: no Vascular Ulcers: no Claudication: no Gangrene: no Doppler Waveforms: Right: Monophasic to biphasic Left: Monophasic to multiphasic Right Brachial Pressure: 176 Left Brachial Pressure: 177 Ankle-Brachial Indices: Right: 1.01 Left: 0.79 Toe Brachial Indices: Right: 0.75 Left: 1.05 IMPRESSION: Slightly diminished left-sided KAI consistent with at least mild peripheral arterial dis ease in the left lower extremity.
== END | disposition home or self-care (01) ==
LOC: RADUSWWP 14:03
PROVIDERS: ATTEND Family Medicine
DX: I73.9 Peripheral vascular disease, unspecified (principal)
CPT/HCPCS: 93923

== ENCOUNTER → 2022-10-06 | Outpatient (CLI) | payer MEDICARE ==
--- NOTE | 2022-10-07 20:45 | MM ---
Reason for Exam: Screening (asymptomatic). Last mammogram was performed 1 year(s) and 1 month(s) ago. Patient History: Menarche at age 13. First Full-Term at age 25. Postmenopausal. 2008, Benign Stereotactic Core Biopsy on the right side. 2000, Bilateral Reduction. 01/31/2014, Benign Core Biopsy on the right side. Maternal grandmother had breast cancer, age 70. Risk Values: Fatoumata 5 year model risk: 2.4%. NCI Lifetime model risk: 9.4%. Prior Study Comparison: 12/25/2016 Right Diagnostic Mammogram, [facility]. 08/22/2020 Bilateral Screening Mammogram, [facility]. 08/28/2021 Bilateral MG 3D screening mammo w/cad, [facility]. Tissue Density: There are scattered fibroglandular densities. Findings: Analyzed By CAD. Bilateral reduction mammoplasty changes. Areas of bilateral well cyst calcifications and fat necrosis are redemonstrated. To microclips in the right breast from prior biopsies. There is no suspicious group of microcalcifications or new suspicious mass in either breast. Overall Assessment: Benign, BI-RAD 2 Management: Screening Mammogram of both breasts in 1 year. . Patient should continue monthly self-breast exams. A clinical breast exam by your physician is recommended on an annual basis. This exam should not preclude additional follow-up of suspicious palpable abnormalities. Note on Fatoumata scores and lifetime risk: 1. A Fatoumata score greater than 3% is considered moderate risk. If this is the case, consider specialist referral to assess eligibility for a risk reducing agent. 2. If overall lifetime risk for the development of breast cancer is 20% or higher, the patient may qualify for future screening with alternating mammogram and breast MRI. Electronically signed and approved by: Aleksander Garcia M.D. Radiologist
== END | disposition home or self-care (01) ==
LOC: RADMAMWWP 14:35
PROVIDERS: ATTEND Family Medicine
DX: Z12.31 Encounter for screening mammogram for malignant neoplasm of breast (principal); Z78.0 Asymptomatic menopausal state; Z80.3 Family history of malignant neoplasm of breast
CPT/HCPCS: 77063; 77067

== ENCOUNTER → 2023-10-11 | Outpatient (CLI) | payer MEDICARE ==
--- NOTE | 2023-10-13 08:53 | MM ---
Reason for Exam: Screening (asymptomatic). Last screening mammogram was performed 12 month(s) ago. Patient History: Menarche at age 13. First Full-Term at age 25. Postmenopausal. 2008, Benign Stereotactic Core Biopsy on the right side. 2000, Bilateral Reduction. 01/31/2014, Benign Core Biopsy on the right side. Maternal grandmother had breast cancer, age 70. Risk Values: Fatoumata 5 year model risk: 2.4%. NCI Lifetime model risk: 9.1%. Prior Study Comparison: 08/22/2020 Bilateral Screening Mammogram, [facility]. 08/28/2021 Bilateral MG 3D screening mammo w/cad, [facility]. 10/06/2022 Bilateral MG 3D screening mammo w/cad, [facility]. Tissue Density: There are scattered areas of fibroglandular density. Findings: Analyzed By CAD. There is no suspicious group of microcalcifications or new suspicious mass in either breast. Overall Assessment: Benign, BI-RAD 2 Management: Screening Mammogram of both breasts in 1 year. . Patient should continue monthly self-breast exams. A clinical breast exam by your physician is recommended on an annual basis. This exam should not preclude additional follow-up of suspicious palpable abnormalities. Note on Fatoumata scores and lifetime risk: 1. A Fatoumata score greater than 3% is considered moderate risk. If this is the case, consider specialist referral to assess eligibility for a risk reducing agent. 2. If overall lifetime risk for the development of breast cancer is 20% or higher, the patient may qualify for future screening with alternating mammogram and breast MRI. Electronically signed and approved by: Joss Grimaldo M.D. Radiologis
== END | disposition home or self-care (01) ==
LOC: RADMAMWWP 10:09
PROVIDERS: ATTEND Family Medicine
DX: Z12.31 Encounter for screening mammogram for malignant neoplasm of breast (principal); R92.323 Mammographic fibroglandular density, bilateral breasts; Z78.0 Asymptomatic menopausal state; Z80.3 Family history of malignant neoplasm of breast
CPT/HCPCS: 77063; 77067

== ENCOUNTER → 2024-06-27 | Outpatient (CLI) | payer MEDICARE ==
[2024-06-27 13:14] VITALS: BP 128/87; PULSE 64; RESP 16; TEMP 98
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
== END ==
LOC: 3 N SLEEP 12:57
PROVIDERS: ATTEND Internal Medicine Critical Care Medicine
DX: G47.10 Hypersomnia, unspecified (principal); G47.33 Obstructive sleep apnea (adult) (pediatric); E66.9 Obesity, unspecified; E03.9 Hypothyroidism, unspecified; E78.5 Hyperlipidemia, unspecified; N39.498 Other specified urinary incontinence; Z86.59 Personal history of other mental and behavioral disorders; Z87.891 Personal history of nicotine dependence
CPT/HCPCS: 99211

== ENCOUNTER 2024-07-16 19:36 | Outpatient (CLI) | payer MEDICARE ==
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
== END 2024-07-17 06:05 | disposition home or self-care (01) ==
LOC: 3 N SLEEP 19:36
PROVIDERS: ATTEND Internal Medicine Critical Care Medicine
DX: G47.33 Obstructive sleep apnea (adult) (pediatric) (principal); E03.9 Hypothyroidism, unspecified; E66.9 Obesity, unspecified; E78.5 Hyperlipidemia, unspecified; M62.50 Muscle wasting and atrophy, not elsewhere classified, unspecified site; R53.1 Weakness; G82.20 Paraplegia, unspecified; R32 Unspecified urinary incontinence; Z86.59 Personal history of other mental and behavioral disorders; Z68.33 Body mass index [BMI] 33.0-33.9, adult; Z87.891 Personal history of nicotine dependence
CPT/HCPCS: 95810

== ENCOUNTER 2024-08-17 19:53 | Outpatient (CLI) | payer MEDICARE ==
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
== END 2024-08-18 06:20 | disposition home or self-care (01) ==
LOC: 3 N SLEEP 19:53
PROVIDERS: ATTEND Internal Medicine Critical Care Medicine
DX: G47.33 Obstructive sleep apnea (adult) (pediatric) (principal); E66.9 Obesity, unspecified; G82.20 Paraplegia, unspecified; E03.9 Hypothyroidism, unspecified; E78.5 Hyperlipidemia, unspecified; F32.A Depression, unspecified; R32 Unspecified urinary incontinence; M62.50 Muscle wasting and atrophy, not elsewhere classified, unspecified site; Z99.89 Dependence on other enabling machines and devices; Z87.828 Personal history of other (healed) physical injury and trauma; Z87.891 Personal history of nicotine dependence
CPT/HCPCS: 95811